=== PATIENT | female | born 1995 | race Caucasian/White ===

== ENCOUNTER 2022-03-23 07:30 | Inpatient (IN) | payer OTHER ==
[~2022-03-23] VITALS: Ht 160 cm; Wt 90.7 kg
[2022-03-23] MEDS ORDERED: CEFAZOLIN 2 GM IVPB PREMIX 50 ML IV ONE ×2 (12:00→14:45)
[2022-03-23 12:03] VITALS: BP_SYST 120
[2022-03-23 12:10] LABS: BILIRUBIN,URINE NEGATIVE (NEGATIVE); BLOOD, URINE NEGATIVE (NEGATIVE); COLOR,URINE YELLOW (YELLOW); GLUCOSE,URINE NEGATIVE (NEGATIVE); KETONES,URINE NEGATIVE (NEGATIVE); LEUKOCYTE ESTERASE ,URINE 3+ (NEGATIVE); NITRITE, URINE NEGATIVE (NEGATIVE); PROTEIN URINE NEGATIVE (NEGATIVE); UROBILINOGEN,URINE 0.2 (0.2-1.0)
[2022-03-23 12:11] LABS: BASOPHILS # (AUTO) 0.1 K/uL (0.0-0.2); BASOPHILS % (AUTO) 0.5 % (0.0-2.0); EOSINOPHILS % (AUTO) 0.3 % (0.0-4.0); HEMATOCRIT 34.8 % (36-48); HEMOGLOBIN 11.4 g/dL (12.0-16.0); LYMPHOCYTES # (AUTO) 1.5 K/uL (1.0-5.5); LYMPHOCYTES % (AUTO) 15.4 % (20.5-51.5); MEAN CORPUSCULAR HEMOGLOBIN 26 pg (27-31); MEAN CORPUSCULAR HGB CONC 33 % (32-36); MEAN CORPUSCULAR VOLUME 78 fL (79.0-98.0); MONOCYTES # (AUTO) 0.8 K/uL (0.0-1.0); MONOCYTES % (AUTO) 7.5 % (1.7-9.3); NEUTROPHILS # (AUTO) 7.7 K/uL (1.8-7.7); NEUTROPHILS % (AUTO) 76.3 % (40.0-70.0); PLATELET COUNT (AUTO) 143 K/uL (130-430); RED BLOOD CELL COUNT(AUTO) 4.45 MIL/uL (4.2-6.2); RED CELL DISTRIBUTION WIDTH 15.7 % (9.0-15.0); WHITE BLOOD COUNT (AUTO) 10.1 K/uL (4.8-10.8)
[2022-03-23 12:12] LABS: CLARITY/URINE HAZY (CLEAR)
[2022-03-23 12:17] LABS: BACTERIA,URINE MODERATE /HPF (None Seen); RBC,URINE 0-3 /HPF (0-3); WBC,URINE 20-50 /HPF (0-3)
[2022-03-23] MEDS ORDERED: METHYLERGONOVINE MALEATE 0.2 MG/ML AMP ONE ×2 (13:57→14:45)
[2022-03-23] MEDS ORDERED: MEPERIDINE HCL/PF 25 MG/ML DISP.SYRIN IVP PRN (14:30)
[2022-03-23] MEDS ORDERED: DIPHENHYDRAMINE INJ 50 MG/ML VIAL IVP PRN (14:30)
[2022-03-23] MEDS ORDERED: HYDROmorphone 1 MG/ML INJ. CARTRIDGE IVP PRN (14:30)
[2022-03-23] MEDS ORDERED: NALOXONE HCL 0.4 MG/ML AMP (NARCAN) IVP PRN (14:30)
[2022-03-23] MEDS ORDERED: ONDANSETRON HCL 4 MG/2 ML VIAL IVP PRN (14:30)
[2022-03-23] MEDS ORDERED: ONDANSETRON HCL 4 MG/2 ML VIAL ONE (14:45)
[2022-03-23] MEDS ORDERED: BUPIVACAINE /PF 0.75% 10 ML VIAL INJ ONE (14:45)
[2022-03-23] MEDS ORDERED: OXYTOCIN/0.9 % SODIUM CHLORIDE 20 UNITS/1,000 ML BAG IV ONE (14:45)
[2022-03-23] MEDS ORDERED: LR 1,000 ML IV.SOLN IV ONE (14:45)
[2022-03-23] MEDS ORDERED: NS IRRIG SOLN 1000 ML IR ONE (14:45)
[2022-03-23] MEDS ORDERED: MORPHINE SULFATE 10MG/10ML PF AMP ONE (14:45)
[2022-03-23] MEDS ORDERED: HYDROcodone/ACETAMIN 5-325 MG TAB (NORCO/ VICODIN) PO PRN (14:45)
[2022-03-23] MEDS ORDERED: OXYTOCIN/0.9 % SODIUM CHLORIDE 1,000 ML IV ONE ×2 (19:14→19:15)
[2022-03-23] MEDS: OXYCODONE/ACETAMINOPHEN 5-325 TABLET PO PRN (19:40)
[2022-03-23] MEDS ORDERED: SIMETHICONE 80 MG TAB.CHEW PO PRN (20:30)
[2022-03-23] MEDS ORDERED: BISACODYL 10 MG/SUPPOSITORY RC PRN (20:30)
[2022-03-23] MEDS ORDERED: DIPH-TET-PERTUS Vaccine 0.5 ML VIAL (ADACEL) I.M. PRN (20:30)
[2022-03-23] MEDS: SENNOSIDES/DOCUSATE SODIUM 1 TAB TABLET(SENOKOT-S) PO SCH (21:07)
[2022-03-23] MEDS: DOCUSATE SODIUM 100 MG CAPSULE PO SCH (21:07)
[2022-03-24] MEDS: OXYCODONE/ACETAMINOPHEN 5-325 TABLET PO PRN ×3 (01:30→17:54)
[2022-03-24] MEDS: LR 1,000 ML IV SCH ×2 (02:21→06:11)
[2022-03-24 06:54] LABS: BASOPHILS % (AUTO) 0.2 % (0.0-2.0); EOSINOPHILS % (AUTO) 0.2 % (0.0-4.0); HEMATOCRIT 32.6 % (36-48); HEMOGLOBIN 10.6 g/dL (12.0-16.0); LYMPHOCYTES # (AUTO) 1.5 K/uL (1.0-5.5); LYMPHOCYTES % (AUTO) 10.3 % (20.5-51.5); MEAN CORPUSCULAR HEMOGLOBIN 26 pg (27-31); MEAN CORPUSCULAR HGB CONC 32 % (32-36); MEAN CORPUSCULAR VOLUME 79 fL (79.0-98.0); MONOCYTES # (AUTO) 1.1 K/uL (0.0-1.0); MONOCYTES % (AUTO) 7.7 % (1.7-9.3); NEUTROPHILS # (AUTO) 11.6 K/uL (1.8-7.7); NEUTROPHILS % (AUTO) 81.6 % (40.0-70.0); PLATELET COUNT (AUTO) 147 K/uL (130-430); RED BLOOD CELL COUNT(AUTO) 4.14 MIL/uL (4.2-6.2); RED CELL DISTRIBUTION WIDTH 15.7 % (9.0-15.0); WHITE BLOOD COUNT (AUTO) 14.2 K/uL (4.8-10.8)
[2022-03-24] MEDS: IBUPROFEN 600 MG TABLET PO SCH ×3 (07:19→17:48)
[2022-03-24] MEDS: DOCUSATE SODIUM 100 MG CAPSULE PO SCH ×2 (09:22→21:33)
[2022-03-24 20:00] VITALS: BP_SYST 112
[2022-03-24] MEDS: SENNOSIDES/DOCUSATE SODIUM 1 TAB TABLET(SENOKOT-S) PO SCH (21:33)
[2022-03-25] MEDS: IBUPROFEN 600 MG TABLET PO SCH ×3 (00:16→12:26)
[2022-03-25] MEDS: OXYCODONE/ACETAMINOPHEN 5-325 TABLET PO PRN ×2 (00:22→06:09)
[2022-03-25] MEDS: DOCUSATE SODIUM 100 MG CAPSULE PO SCH (09:01)
[2022-03-27 19:06] LABS: FTA-Ab (T PALLIDUM) Non Reactive (Non Reactive)
== END 2022-03-25 14:30 | disposition home or self-care (01) | DRG 540 ==
LOC: SPU 10:58
PROVIDERS: ADMIT Obstetrics & Gynecology; ATTEND Obstetrics & Gynecology
PROC: 10D00Z1 Extraction of Products of Conception, Low, Open Approach (ICD-10-PCS; principal; 2022-03-23 13:18)
DX: O34.211 Maternal care for low transverse scar from previous cesarean delivery (principal); O99.214 Obesity complicating childbirth; E66.01 Morbid (severe) obesity due to excess calories; O99.02 Anemia complicating childbirth; O99.824 Streptococcus B carrier state complicating childbirth; Z20.822 Contact with and (suspected) exposure to COVID-19; Z37.0 Single live birth; Z3A.38 38 weeks gestation of pregnancy
CPT/HCPCS: 36415; 81000; 81002; 85025; 86592; 86780; 86886; 86900; 86901; 87086; 90715; 94760; J0690; J2210; J2274; J2405; J2590; J3490; J7120; U0003